=== PATIENT | male | born 1965 | race Caucasian/White ===

== ENCOUNTER 2018-09-23 14:14 | Inpatient (IN) | payer OTHER ==
[~2018-09-23] VITALS: Ht 185.4 cm; Wt 117.9 kg
--- NOTE | 2018-09-23 14:48 | NUR ---
PACIENTE ALERTA Y ORIENTADO EN COMPANIA DE FAMILIAR QUIEN REFIERE DOLOR EN EL PECHO,EDEMA EN EXTREMIDADES INFERIORES Y DIFICULTAD RESPIRATORIA DESDE HACE 4 DELONG. PACIENTE SATURANDO AL MOMENTO 93%. SE OBSERVAN PIERNAS EDEMATOSAS. SE PRESENTA EKG A DR. HELM Y SE CONECTA A MONITOR CARDIACO CON OXIMETRIA DE PULSO. NOTIFICA A DR. HELM OXIGENACION EN 90% AL UBICARLO EN CAMA.
--- NOTE | 2018-09-23 17:23 | NUR ---
PT ALERTA, EN COMPANIA DE FAMILIAR. SE LE ORIENTA SOBRE TX Y REFIERE ENTEDER, SE STEPH MUESTRAS DE ROSANNE Y VENOPUNCION CON TECNICAS ASEPTICAS. PT CONECTADO A MONITOR CARDIACO Y SATUROMETRO DE PULSO. PT TOLERA TX. SE MANTIENE BAJO OBSERVACION POR CAMBIOS EN ELIZABET.
--- NOTE | 2018-09-24 07:26 | NUR ---
PACIENTE ALERTA Y ORIENTADO POR ANGELA ESFERAS EN COMPANIA DE FAMILIAR CONECTADO A MONITOR CARDIACO CON OCIMETRIA DE PULSO. PACIENTE CON BUEN PATRON RESPIRATORIO Y PIEL TIBIA AL TACTO. PENDIENTE CONSULTA CON DR. FELIX.
== END 2018-09-29 14:17 | disposition home or self-care (01) | DRG 182 ==
LOC: ER 14:14 → SEC-K 09-24 09:52 → MEDI 09-24 09:52
PROVIDERS: ADMIT Internal Medicine
PROC: B246ZZZ Ultrasonography of Right and Left Heart (ICD-10-PCS; 2018-09-24)
PROC: 3E0F7GC Introduction of Other Therapeutic Substance into Respiratory Tract, Via Natural or Artificial Opening (ICD-10-PCS; 2018-09-24)
PROC: 0BBL3ZX Excision of Left Lung, Percutaneous Approach, Diagnostic (ICD-10-PCS; principal; 2018-09-25)
DX: C34.82 Malignant neoplasm of overlapping sites of left bronchus and lung (principal); R09.02 Hypoxemia; E87.6 Hypokalemia; J40 Bronchitis, not specified as acute or chronic